=== PATIENT | male | born 1995 | race Caucasian/White ===

== ENCOUNTER → 2017-11-10 | Emergency (ER) | payer OTHER ==
[~2017-11-10] VITALS: Ht 182.9 cm; Wt 127.5 kg
[~2017-11-10] MED LIST: ATENOLOL25 MG; LOPRESSOR25 MG
== END | disposition left against medical advice (07) ==
LOC: ER 23:54
DX: Z53.20 Procedure and treatment not carried out because of patient's decision for unspecified reasons (principal)

== ENCOUNTER 2019-05-23 19:03 | Emergency (ER) | payer OTHER ==
[~2019-05-23] VITALS: Ht 182.9 cm; Wt 90.7 kg
== END 2019-05-23 23:19 | disposition home or self-care (01) ==
LOC: ER 19:03
DX: I49.8 Other specified cardiac arrhythmias (principal); R00.2 Palpitations

== ENCOUNTER 2021-12-25 07:47 | Outpatient (CLI) | payer OTHER | END 2021-12-25 08:20 | disposition home or self-care (01) | LOC: RAD 07:47 | PROVIDERS: ATTEND Radiology Diagnostic Radiology | DX: M25.562 Pain in left knee (principal) ==

== ENCOUNTER → 2023-01-02 | Outpatient (CLI) | payer OTHER | END | disposition home or self-care (01) | LOC: RAD 11:13 | PROVIDERS: ATTEND Internal Medicine Geriatric Medicine | DX: R06.02 Shortness of breath (principal); I11.9 Hypertensive heart disease without heart failure ==

== ENCOUNTER 2023-05-20 08:48 | Outpatient (CLI) | payer OTHER | END 2023-05-20 14:23 | disposition home or self-care (01) | LOC: TOM 08:48 | PROVIDERS: ATTEND Radiology Diagnostic Radiology | DX: S99.812A Other specified injuries of left ankle, initial encounter (principal) ==

== ENCOUNTER → 2024-09-03 | Emergency (ER) | payer OTHER ==
[~2024-09-03] VITALS: Ht 182.9 cm; Wt 129.3 kg
[~2024-09-03] MED LIST changes: +ALLOPURINOL100 MG PO; +MONTELUKAST SODIUM 10 MG TABLET PO ONE; +ROSUVASTATIN CAL5 MG PO
[2024-09-03 13:31] VITALS: BP 139/69; O2SAT 100
[2024-09-03 14:39] LABS: HEMATOCRIT 45.8 % (39.0-48.0); HEMOGLOBIN 15.6 g/dL (13-16.00); MEAN CELL VOLUME 86.7 fL (80.0-100.00); MEAN CORPUSCULAR HEMOGLOBIN 29.5 pg (27.00-32.0); MEAN CORPUSCULAR HGB CONC 34.1 g/dl (32.0-36.0); PLATELET COUNT 282 K/uL (150-450); RED BLOOD COUNT 5.28 M/uL (4.00-6.00); RED CELL DISTRIBUTION WIDTH 13.8 % (11.5-14.5)
== END | disposition home or self-care (01) ==
LOC: ER 11:57
PROVIDERS: General Practice
DX: R06.02 Shortness of breath (principal); I10 Essential (primary) hypertension; Z88.6 Allergy status to analgesic agent; Z88.8 Allergy status to other drugs, medicaments and biological substances; Z20.822 Contact with and (suspected) exposure to COVID-19

== ENCOUNTER 2024-09-30 09:44 | Outpatient (CLI) | payer OTHER ==
[~2024-09-30 09:44] MED LIST changes: -MONTELUKAST SODIUM 10 MG TABLET PO ONE
== END 2024-09-30 10:10 | disposition home or self-care (01) ==
LOC: RAD 09:44
PROVIDERS: ATTEND Internal Medicine Pulmonary Disease
DX: J45.31 Mild persistent asthma with (acute) exacerbation (principal)